=== PATIENT | female | born 1965 | race Caucasian/White ===

== ENCOUNTER → 2022-08-14 | Outpatient (CLI) | payer BC ==
--- NOTE | 2022-08-14 14:14 | P.SLEEP ---
History of Present Illness H&P Date: 08/14/22 57-year-old female patient, with known history of obstructive sleep apnea. Diagnosis established in this state of any anion the patient is currently using CPAP machine, at the pressure of 7 cm of water. She has a ResMed 10 CPAP unit and she is also using the airfit P 10 nasal pillows. Her machine and went to bed and he is not turning on anymore. I checked the machine and is completely nonfunctional. Based on that, the patient is hoping to update her CPAP unit. I think the issues with a plug of the machine. I was able to briefly turn the machine on and I noted that the patient was on a pressure of 7 cm of water and she has been utilizing her machine on average of 7.2 hours per night and had AHI was down to 2.7 while on treatment. As such, treatment was successful and over the past 2 months, the patient has not utilized any treatment and her symptoms of sleep apnea quite active with the patient is snoring, stopping breathing and she feels tired and sleepy during the day. She goes to bed at around 9 PM, wakes up 5 AM in the morning and his sleep is very much fragmented. Her current unforced score is at 7. She is known to have hypothyroidism, hypertension and hyperlipidemia. No cardiovascular disease or complications. Review of Systems Constitutional: Reports daytime sleepiness, Reports fatigue, Reports weight gain Eyes: denies as per HPI, denies blurred vision, denies bulging eye, denies decreased vision, denies diplopia, denies discharge, denies dry eye, denies irritation, denies itching, denies pain, denies photophobia, denies loss of peripheral vision, denies loss of vision, denies tunnel vision/blind spots Ears: deny: decreased hearing, ear discharge, earache, tinnitus Ears, nose, mouth and throat: Reports as per HPI Breasts: absent: as per HPI, change in shape, gynecomastia, masses, nipple discharge, pain, skin changes, swelling Cardiovascular: Reports as per HPI Respiratory: Reports sleep apnea, Reports snoring Gastrointestinal: Reports as per HPI Genitourinary: Reports as per HPI Menstruation: Reports as per HPI Musculoskeletal: Reports as per HPI Musculoskeletal: absent: ankle pain, ankle stiffness, ankle swelling, as per HPI, elbow pain, elbow stiffness, elbow swelling, foot pain, foot stiffness, foot swelling, hand pain, hand stiffness, hand swelling, hip pain, hip stiffness, hip swelling, knee pain, knee stiffness, knee swelling, shoulder pain, shoulder stiffness, shoulder swelling, wrist pain, wrist stiffness, wrist swelling Integumentary: Reports as per HPI Neurological: Reports as per HPI Psychiatric: Reports as per HPI Endocrine: Reports as per HPI, Reports fatigue Hematologic/Lymphatic: Reports as per HPI Allergic/Immunologic: Reports as per HPI Past Medical History Past Medical History: Hyperlipidemia, Hypertension, Sleep Apnea/CPAP/BIPAP, Thyroid Disorder Medications and Allergies Home Medications and Allergies Comment(s): Medication includes levothyroxine, lisinopril, Wellbutrin and Lipitor. The doses are not known. Physical Exam BP is 156/88, pulse is 86, respirations 12, temperature is 97.5. The size of the neck is 16.5 inches. Lena score is at 7. BMI is 44. The patient appeared well nourished and normally developed. Vital signs as documented. Head exam is unremarkable. No scleral icterus or corneal arcus no terri. Neck is without jugular venous distension, thyromegaly, or carotid bruits. Carotid upstrokes are brisk bilaterally. The patient has micrognathia with crowding of the posterior pharynx and metabolic as for Lungs are clear to auscultation and percussion. Cardiac exam reveals the PMI to be normally sized and situated. Rhythm is regular. First and second heart sounds normal. No murmurs, rubs or gallops. Abdominal exam reveals normal bowel sounds, no masses, no organomegaly and no aortic enlargement. Extremities are nonedematous and both femoral and pedal pulses are normal.Examination of the skin revealed no evidence of significant rashes, suspicious appearing nevi or other concerning lesions.Neurologically, the patient is awake and alert and the patient does not have any focal neurological deficit. Cranial nerves are essentially intact. Assessment and Plan Plan: Symptomatic obstructive sleep apnea. Patient currently has a malfunctioning CPAP unit. She is hoping to update her machine. She was treated with a CPAP pressure of 7 cm of water over the years and her treatment was successful. Currently she is symptomatic and the patient is off treatment. Obesity, BMI 44 Chronic hypersomnia for score of 7 Hypertension Hyperlipidemia Hypothyroidism Plan Ordered a home sleep study to establish the presence of sleep apnea in severity Ordered new CPAP unit for this patient a pressure of 7 cm of water with C-Flex of 3 Keep the same mask interface which is a airfit p10 nasal pillows large size Encourage weight loss Optimize sleep hygiene measures We'll continue to follow Sleep Note - Sleep Note Sleep Note: Temperature: Pulse Rate: Respiratory Rate: Blood Pressure: SpO2: Height: Weight: BMI: Neck Circumference:
== END ==
LOC: SLEEP 13:33
PROVIDERS: ATTEND Internal Medicine Critical Care Medicine
DX: G47.33 Obstructive sleep apnea (adult) (pediatric) (principal); Z99.89 Dependence on other enabling machines and devices; E66.9 Obesity, unspecified; Z68.41 Body mass index [BMI] 40.0-44.9, adult; I10 Essential (primary) hypertension; E03.9 Hypothyroidism, unspecified; E78.5 Hyperlipidemia, unspecified
CPT/HCPCS: 99202

== ENCOUNTER → 2022-12-25 | Outpatient (CLI) | payer BC ==
--- NOTE | 2022-12-25 16:16 | P.PN ---
Subjective Progress Note Date: 12/25/22 This is a 57-year-old female patient was diagnosed having obstructive sleep apnea and the patient is coming in for an compliancy check. The patient was diagnosed having moderately severe disease with an AHI of 26 and based on that, the patient was offered an APAP machine which is currently set at a pressure of 5/15 cm of water. The patient is utilizing her machine overnight and the patient reports marked improvement in his sleep quality. She is waking up refreshed and alert during the day. Her level of alertness is improved while being on CPAP therapy. The patient has no major complaints and she is committed to long-term CPAP therapy. Compliance data that has been collected between 11/24/2022 and indicated the patient has been compliant 100% of the time and the patient has been averaging about 7 hours and 33 minutes of CPAP use per night. The patient has a P90 5th percentile pressure of 10.4. Leak some minimal at 8 L. Her AHI down to 2.3 while being on treatment. She is using the air fit P 10 nasal pillows. She is complaining of some of the dryness in her mouth when she wakes up in the morning. Otherwise no other complaints [place] score is at 6 BP is 130/80 with a pulse of 88 and a respiration of 12 and a temperature of 97.1. Weight is 235. The patient appeared well nourished and normally developed. Vital signs as documented. Head exam is unremarkable. No scleral icterus or corneal arcus noted. Neck is without jugular venous distension, thyromegaly, or carotid bruits. Carotid upstrokes are brisk bilaterally. Lungs are clear to auscultation and percussion. Cardiac exam reveals the PMI to be normally sized and situated. Rhythm is regular. First and second heart sounds normal. No murmurs, rubs or gallops. Abdominal exam reveals normal bowel sounds, no masses, no organomegaly and no aortic enlargement. Extremities are nonedematous and both femoral and pedal pulses are normal.Examination of the skin revealed no evidence of significant rashes, suspicious appearing nevi or other concerning lesions.Neurologically, the patient is awake and alert and the patient does not have any focal neurological deficit. Cranial nerves are essentially intact. Assessment Obstructive sleep apnea with an AHI of 26 consistent with moderately severe disease, and the patient has been responding nicely to CPAP therapy. The patient currently has a ResMed 11 APAP unit pressures of 5/15 cm of water Chronic hypersomnia, improved Obesity with a body mass index of 44 Plan Encourage weight loss Maintain CPAP therapy the same level of pressure Keep the same mask interface Clinically improving Change the humidification system and to manual Set level at 4 Temperature at 72 We'll see him back in the office in a year's time and follow-up.
== END ==
LOC: 3 N SLEEP 14:55
PROVIDERS: ATTEND Internal Medicine Critical Care Medicine
DX: G47.33 Obstructive sleep apnea (adult) (pediatric) (principal); E66.9 Obesity, unspecified; Z68.41 Body mass index [BMI] 40.0-44.9, adult
CPT/HCPCS: 99212